=== PATIENT | female | born 1960 | race American Indian/Alaskan Native ===

== ENCOUNTER → 2018-12-06 16:14 | Outpatient (CLI) | payer OTHER, SELFPAY ==
--- NOTE | 2018-12-06 | DI.RAD.S_ITS ---
PROCEDURE: XR KNEE RT 3V INDICATIONS: GROWTH ON PRETIBIAL TUBEROCITY TECHNIQUE: 3 views of the knee were acquired. COMPARISON: None. FINDINGS: Bones: No fractures or dislocations. No suspicious bony lesions. Mild joint degeneration primarily involving the medial compartment. The tibial tuberosity appears within normal limits. Soft tissues: No joint effusion. No suspicious soft tissue calcifications. IMPRESSION: Mild right knee joint degeneration. No osseous lesion identified. If there is persistent clinical concern for mass, further evaluation of the soft tissues with cross-sectional imaging could be performed. Dictated by: Jovanny Choudhary M.D. on 12/06/2018 at 16:51 Approved by: Jovanny Choudhary M.D. on 12/06/2018 at 16:53
== END ==
PROVIDERS: Visit Provider Family Medicine
DX: M89.8X6 Other specified disorders of bone, lower leg (principal); M17.11 Unilateral primary osteoarthritis, right knee
CPT/HCPCS: 73562

== ENCOUNTER → 2023-06-14 13:13 | Outpatient (CLI) | payer OTHER, SELFPAY ==
[2023-06-14 15:11] LABS: Add Manual Diff / Slide Review NO; Basophils Absolute Auto 0 /uL (0-100); Basophils Percent Auto 0.5 % (0-2); Eosinophils Absolute Auto 300 /uL (0-450); Hematocrit 35.4 % (36-46); Hemoglobin 12.3 g/dL (12.0-16.0); Lymphocytes Absolute Auto 2400 /uL (1100-4500); Lymphocytes Percent Auto 31.4 % (25-40); Mean Corpuscular HGB Conc 34.7 % (30-36); Mean Corpuscular Hemoglobin 29.5 PG (26-34); Mean Corpuscular Volume 85.1 fL (80-100); Monocytes Absolute Auto 500 /uL (0-900); Monocytes Percent Auto 6.2 % (3-14); Neutrophils Absolute Auto 4400 /uL (1500-7000); Neutrophils Percent Auto 57.9 % (50-75); Platelet Count 264 X10^3/uL (150-400); Red Blood Cell Count 4.16 X10^6/uL (4.0-5.2); Red Cell Distribution Width 13.3 % (11.6-14.8); White Blood Cell Count 7.6 X10^3/uL (4.5-11.0)
[2023-06-14 16:08] LABS: Alanine Aminotransferase 36 IU/L (<35); Albumin 4.3 g/dL (3.5-5.0); Albumin Globulin Ratio 1.2 (1.0-2.8); Alkaline Phosphatase 170 U/L (38-126); Aspartate Aminotransferase 35 IU/L (14-36); BUN Creatinine Ratio 21.2 (6-22); Bilirubin Total 0.7 mg/dL (0.2-1.3); Blood Urea Nitrogen 28 mg/dL (7-17); Calcium 9.1 mg/dL (8.4-10.2); Carbon Dioxide 30 mmol/L (22-32); Chloride 92 mmol/L (98-107); Estimated Glomerular Filt Rate 46 mL/min (>60); Globulin 3.7 g/dL (1.7-4.1); HEMOLYSIS 23 (0-50); Lipase 696 U/L (23-300); Potassium 3.7 mmol/L (3.4-5.1); Sodium 132 mmol/L (137-145)
[2023-06-14 20:02] LABS: Glucose 495 mg/dL (80-110)
[2023-06-15 03:36] LABS: Labcorp Hemoglobin (Hb) A1c 12.5 % (4.8-5.6)
[2023-06-15 13:21] LABS: Interpretation Positive (Negative)
== END ==
PROVIDERS: PCP Family Medicine; Referring Provider Registered Nurse; Visit Provider Registered Nurse
DX: R10.13 Epigastric pain (principal); E11.9 Type 2 diabetes mellitus without complications
CPT/HCPCS: 36415; 80053; 83013; 83036; 83690; 85025

== ENCOUNTER 2023-06-14 20:36 | Emergency (ER) | payer OTHER, SELFPAY ==
[2023-06-14 20:43] VITALS: BP 124/71; PULSE 92; RESP 16; TEMP 36.6; O2SAT 98; BMI 19.9
[2023-06-14 21:23] LABS: Add Manual Diff / Slide Review NO; Basophils Absolute Auto 0 /uL (0-100); Basophils Percent Auto 0.3 % (0-2); Eosinophils Absolute Auto 300 /uL (0-450); Eosinophils Percent Auto 3.9 % (2-4); Hematocrit 35.4 % (36-46); Hemoglobin 12.1 g/dL (12.0-16.0); Lymphocytes Absolute Auto 2300 /uL (1100-4500); Lymphocytes Percent Auto 34.8 % (25-40); Mean Corpuscular HGB Conc 34.2 % (30-36); Mean Corpuscular Hemoglobin 29.5 PG (26-34); Mean Corpuscular Volume 86.4 fL (80-100); Monocytes Absolute Auto 500 /uL (0-900); Monocytes Percent Auto 7.3 % (3-14); Neutrophils Absolute Auto 3600 /uL (1500-7000); Neutrophils Percent Auto 53.7 % (50-75); Platelet Count 240 X10^3/uL (150-400); Red Blood Cell Count 4.09 X10^6/uL (4.0-5.2); Red Cell Distribution Width 12.9 % (11.6-14.8); White Blood Cell Count 6.7 X10^3/uL (4.5-11.0)
[2023-06-14 21:28] LABS: Alanine Aminotransferase 33 IU/L (<35); Albumin 3.9 g/dL (3.5-5.0); Albumin Globulin Ratio 1.1 (1.0-2.8); Alkaline Phosphatase 183 U/L (38-126); Aspartate Aminotransferase 31 IU/L (14-36); BUN Creatinine Ratio 21.9 (6-22); Bilirubin Total 0.6 mg/dL (0.2-1.3); Blood Urea Nitrogen 32 mg/dL (7-17); Calcium 8.6 mg/dL (8.4-10.2); Carbon Dioxide 26 mmol/L (22-32); Chloride 94 mmol/L (98-107); Estimated Glomerular Filt Rate 40 mL/min (>60); Globulin 3.6 g/dL (1.7-4.1); HEMOLYSIS 18 (0-50); Potassium 3.7 mmol/L (3.4-5.1); Sodium 130 mmol/L (137-145); Total Protein 7.5 g/dL (6.3-8.2)
[2023-06-14 21:31] LABS: Ketones (Beta-Hydroxybutyrate) 0.08 mmol/L (<0.27)
[2023-06-14 21:39] LABS: Glucose 610 mg/dL (80-110)
[2023-06-14] MEDS: SODIUM CHLORIDE 0.9% 1,000 ML 1000 ML IV (22:02)
[2023-06-14 22:14] LABS: Creatine Kinase 108 U/L (30-135); Lipase 692 U/L (23-300)
[2023-06-14 22:19] VITALS: BP 122/60; PULSE 86; O2SAT 98
[2023-06-14 22:27] LABS: Troponin I < 0.012 ng/mL (0.01-0.034)
[2023-06-14 22:30] VITALS: BP 112/55; PULSE 85; O2SAT 99
[2023-06-14 23:00] VITALS: BP 116/57; PULSE 83; O2SAT 98
[2023-06-14 23:30] VITALS: BP 109/58; PULSE 78; O2SAT 97
--- NOTE | 2023-06-14 23:54 | ED_ITS ---
HPI - General Adult General Chief complaint: Diabetic Problem Stated complaint: sent due to high glucose on labwork Time Seen by Provider: 06/14/23 21:10 Source: patient Mode of arrival: Ambulatory History of Present Illness HPI narrative: Patient is a 63-year-old history of type 2 diabetes presenting today with elevated blood sugar. She reports that she is been helping her dad who has been hospitalized a needing follow-up appointments it has been ongoing for number of weeks. She is been out of her metformin for 4-6 weeks. She was supposed to be off it for 1 week in transition to Ozempic however she was not able to do so. She did go to her doctor today and she did receive 1 dose of Ozempic. She was found to have elevated glucose in the 600s and sent to the ED. He reports some epigastric pain ongoing for the past couple months. No real nausea or vomiting no fever no chest pain or shortness of breath. She has an outpatient ultrasound scheduled for tomorrow. Related Data Home Medications Medication Instructions Recorded Confirmed hydrochlorothiazide 25 mg tablet 25 mg PO QDAY ##0 09/01/12 Allergies Allergy/AdvReac Type Severity Reaction Status Date / Time nitrofurantoin Allergy Mild RASH Unverified 12/07/18 09:46 [NITROFURANTOIN] Penicillins [PENICILLINS] Allergy Mild RASH Unverified 12/07/18 09:46 Sulfa (Sulfonamide Allergy Mild RASH Unverified 12/07/18 09:46 Antibiotics) [SULFA (SULFONAMIDE ANTIBIOTICS)] MDX Allergy Mild RASH Uncoded 12/07/18 09:46 Review of Systems Review of Systems ROS Unobtainable: All systems reviewed & are unremarkable except as noted in HPI and below Patient History Social History Smoking Status: Never smoker Smoking Status: Never smoker Substance Use Type: does not use Exam Initial Vital Signs Initial Vital Signs: Vital Signs Temperature 97.9 F 06/14/23 20:43 Pulse Rate 92 H 06/14/23 20:43 Respiratory Rate 16 06/14/23 20:43 Blood Pressure 124/71 06/14/23 20:43 Pulse Oximetry 98 06/14/23 20:43 Oxygen Delivery Method Room Air 06/14/23 20:43 GENERAL: Alert pleasant well-appearing 63-year-old female and in no acute d istress. HEENT: Head atraumatic,EOMI, pupils reactive, face symmetric, moist mucous membranes CARDIOVASCULAR: Regular rate and rhythm without murmurs, rubs or gallops. RESPIRATORY: Breath sounds equal bilaterally, no wheezes rales or rhonchi. ABDOMEN: Soft, mild epigastric pain no guarding no rebound no right upper quadrant pain EXTREMITIES: Normal range of motion, no clubbing or edema. Neurovascularly intact NEUROLOGICAL: Alert and oriented x4. SKIN: Warm, dry, no laceration, no petechiae, no rashes or lesions. Course Orders Ordered: ED Orders 06/14/23 21:54 EKG-12 Lead Stat Discontinued Medications Sodium Chloride (Normal Saline 0.9%) 1,000 mls @ 1,000 mls/hr IV BOLUS ONE Stop: 06/14/23 22:52 Last Infusion: 06/14/23 23:02 Dose: 0 mls/hr Documented By: Admin: 06/14/23 22:02 Dose: 1,000 mls/hr Documented By: GIORGIO Vital Signs Vital signs: Vital Signs - 8 hr 06/15/23 00:27 06/14/23 22:30 06/14/23 22:30 Temperature 97.7 F Pulse Rate 68 85 Respiratory Rate 16 Blood Pressure 105/70 112/55 L Pulse Oximetry 98 99 Oxygen Delivery Method Room Air 06/14/23 23:00 06/14/23 23:00 06/14/23 23:30 Temperature Pulse Rate 83 Respiratory Rate Blood Pressure 116/57 L 109/58 L Pulse Oximetry 98 Oxygen Delivery Method 06/14/23 23:30 Temperature Pulse Rate 78 Respiratory Rate Blood Pressure Pulse Oximetry 97 Oxygen Delivery Method Medical Decision Making Lab Data 06/14/23 21:00 06/14/23 21:00 Labs: Lab Results 06/14/23 06/14/23 06/14/23 Range/Units 21:00 21:00 21:00 WBC 6.7 (4.5-11.0) X10^3/uL RBC 4.09 (4.0-5.2) X10^6/uL Hgb 12.1 (12.0-16.0) g/dL Hct 35.4 L (36-46) % MCV 86.4 (80-100) fL MCH 29.5 (26-34) PG MCHC 34.2 (30-36) % RDW 12.9 (11.6-14.8) % Plt Count 240 (150-400) X10^3/uL Neut % (Auto) 53.7 (50-75) % Lymph % (Auto) 34.8 (25-40) % Archer % (Auto) 7.3 (3-14) % Eos % (Auto) 3.9 (2-4) % Baso % (Auto) 0.3 (0-2) % Neut # (Auto) 3600 (0864-7191) /uL Lymph # (Auto) 2300 (2291-1479) /uL Archer # (Auto) 500 (0-900) /uL Eos # (Auto) 300 (0-450) /uL Baso # (Auto) 0 (0-100) /uL VBG pH (7.33-7.43) VBG pCO2 (45-50) mmHg VBG pO2 (35-45) mmHg VBG HCO3 (24-28) mmol/L VBG Total CO2 (24-29) mmol/L VBG O2 Saturation (70-75) % VBG Base Excess (0-4) mmol/L FiO2 Sodium 130 L (137-145) mmol/L Potassium 3.7 (3.4-5.1) mmol/L Chloride 94 L (98-107) mmol/L Carbon Dioxide 26 (22-32) mmol/L BUN 32 H (7-17) mg/dL Creatinine 1.46 H (0.52-1.04) mg/dL Estimated GFR 40 L (>60) mL/min BUN/Creatinine Ratio 21.9 (6-22) Glucose 610 H* (80-110) mg/dL Calcium 8.6 (8.4-10.2) mg/dL Total Bilirubin 0.6 (0.2-1.3) mg/dL AST 31 (14-36) IU/L ALT 33 (<35) IU/L Alkaline Phosphatase 183 H (38-126) U/L Total Creatine Kinase 108 (30-135) U/L Troponin I < 0.012 (0.01-0.034) ng/mL Total Protein 7.5 (6.3-8.2) g/dL Albumin 3.9 (3.5-5.0) g/dL Globulin 3.6 (1.7-4.1) g/dL Albumin/Globulin Ratio 1.1 (1.0-2.8) Lipase 692 H (23-300) U/L Ketones 0.08 (<0.27) mmol/L /06/29 Range/Units 21:11 WBC (4.5-11.0) X10^3/uL RBC (4.0-5.2) X10^6/uL Hgb (12.0-16.0) g/dL Hct (36-46) % MCV (80-100) fL MCH (26-34) PG MCHC (30-36) % RDW (11.6-14.8) % Plt Count (150-400) X10^3/uL Neut % (Auto) (50-75) % Lymph % (Auto) (25-40) % Archer % (Auto) (3-14) % Eos % (Auto) (2-4) % Baso % (Auto) (0-2) % Neut # (Auto) (0837-2184) /uL Lymph # (Auto) (8590-5552) /uL Archer # (Auto) (0-900) /uL Eos # (Auto) (0-450) /uL Baso # (Auto) (0-100) /uL VBG pH 7.39 (7.33-7.43) VBG pCO2 43.1 L (45-50) mmHg VBG pO2 31 L (35-45) mmHg VBG HCO3 26 (24-28) mmol/L VBG Total CO2 27 (24-29) mmol/L VBG O2 Saturation 58 L (70-75) % VBG Base Excess 1.0 (0-4) mmol/L FiO2 21 Sodium (137-145) mmol/L Potassium (3.4-5.1) mmol/L Chloride (98-107) mmol/L Carbon Dioxide (22-32) mmol/L BUN (7-17) mg/dL Creatinine (0.52-1.04) mg/dL Estimated GFR (>60) mL/min BUN/Creatinine Ratio (6-22) Glucose (80-110) mg/dL Calcium (8.4-10.2) mg/dL Total Bilirubin (0.2-1.3) mg/dL AST (14-36) IU/L ALT (<35) IU/L Alkaline Phosphatase (38-126) U/L Total Creatine Kinase (30-135) U/L Troponin I (0.01-0.034) ng/mL Total Protein (6.3-8.2) g/dL Albumin (3.5-5.0) g/dL Globulin (1.7-4.1) g/dL Albumin/Globulin Ratio (1.0-2.8) Lipase (23-300) U/L Ketones (<0.27) mmol/L Point of Care Testing Glucose POC 470 Urine Dip Bedside Urine Glucose 1000 mg/dl Bedside Urine Bilirubin - Negative Bedside Urine Ketone - Negative Urine Specific [place] 1.005 Bedside Urine Occult Blood - Negative Bedside Urine pH 6 Bedside Urine Protein - Negative Bedside Urine Urobilinogen - Negative Bedside Urine Nitrite - Negative Bedside Urine Leukocytes - Negative Esterase Point of care testing: Point of Care Testing Glucose POC 470 Urine Dip Bedside Urine Glucose 1000 mg/dl Bedside Urine Bilirubin - Negative Bedside Urine Ketone - Negative Urine Specific [place] 1.005 Bedside Urine Occult Blood - Negative Bedside Urine pH 6 Bedside Urine Protein - Negative Bedside Urine Urobilinogen - Negative Bedside Urine Nitrite - Negative Bedside Urine Leukocytes - Negative Esterase ECG Data Interpretation: Normal sinus rhythm rate 83 TN interval 164 QRS [address] changes no T- wave inversions no priors to compare MDM Narrative Medical decision making narrative: 63-year-old female history of type 2 diabetes presenting today with hyperglycemia. No evidence of DKA she does not have an anion gap no nausea or vomiting. She is had some ongoing epigastric pain. Lipase is noted to be mildly elevated 690 no elevation of bilirubin or liver enzymes she is an outpatient ultrasound ordered for tomorrow which I think is reasonable. Ozempic can cause some pancreatitis discussed how she may need a different medication and to talk with her PCP about this. Glucose has improved with 1 L of IV fluids. She has a normal mentation pH is 7.38. This time I recommend outpatient follow-up Discharge Plan Departure Patient Disposition: Home Clinical Impression: Acute hyperglycemia, Elevated lipase Instructions: DI for Pancreatitis, DI for Diabetes Type 2 Activity Restrictions/Additional Instructions: *You have been diagnosed with hyperglycemia, elevated lipase *What to do: At this time please talk with your PCP in regards to Ozempic. Which can cause some pancreatitis he to have an elevated lipase. Please have your ultrasound as scheduled tomorrow *Continue to take medications as directed *Follow up with your primary care provider in 2-3 days or call [phone] *Return to ER if you should have increased abdominal pain nausea vomiting or any new, worsening or concerning symptoms Prescriptions: No Action hydrochlorothiazide 25 MG tablet 25 mg PO QDAY Qty: 0 Referrals: Aliza Adames MD [Primary Care Provider] - Stand Alone Forms: Patient Portal/API
[2023-06-15 00:27] VITALS: BP 105/70; PULSE 68; RESP 16; TEMP 36.5; O2SAT 98
[2023-06-15 00:47] LABS: HCO3 VBG 26 mmol/L (24-28); Oxygen Saturation VBG 58 % (70-75); PCO2 VBG 43.1 mmHg (45-50); PO2 VBG 31 mmHg (35-45); Total CO2 VBG 27 mmol/L (24-29); pH VBG 7.39 (7.33-7.43)
[2023-06-15 00:48] LABS: Fractionated Inspired Oxygen 21
== END 2023-06-15 00:28 | disposition home or self-care (01) ==
PROVIDERS: Emergency Provider Emergency Medicine; PCP Family Medicine
DX: E11.65 Type 2 diabetes mellitus with hyperglycemia (principal); R74.8 Abnormal levels of other serum enzymes; Z79.84 Long term (current) use of oral hypoglycemic drugs; R03.1 Nonspecific low blood-pressure reading; R10.13 Epigastric pain; E11.9 Type 2 diabetes mellitus without complications
CPT/HCPCS: 36415; 80053; 81003; 82009; 82550; 82805; 82962; 83013; 83036; 83690; 84484; 85025; 93005; 93010; 99284

== ENCOUNTER → 2023-06-15 09:49 | Outpatient (CLI) | payer OTHER, SELFPAY ==
--- NOTE | 2023-06-15 09:50 | DI.US.S_ITS ---
PROCEDURE: US ABDOMEN COMPLETE INDICATIONS: EPIGASTRIC PAIN TECHNIQUE: Real-time scanning was performed of the abdominal and retroperitoneal organs, with image documentation. Color and pulse Doppler interrogation was also performed of the hepatic and splenic vessels, or of the lesion of interest. COMPARISON: None. FINDINGS: Liver: Liver is normal in size and demonstrates heterogeneous echotexture. There is a small hypoechoic focus in the gallbladder fossa, compatible with fatty sparing. Portal vein is patent. Gallbladder: No gallstones. No gallbladder wall thickening, pericholecystic fluid or sonographic Walker's sign. Biliary ducts: No intrahepatic biliary ductal dilatation. Extrahepatic bile duct is 3 mm in caliber. Normal biliary caliber is 6-7 mm or less, or 10 mm or less post-cholecystectomy. Spleen: Spleen is normal in size and homogeneous in echotexture. Pancreas: Visualized portions of the pancreas appear normal. Kidneys: Both kidneys are normal in size and echotexture. Right kidney measures 9.2 cm long; left kidney measures 11.0 cm long. No hydronephrosis or nephrolithiasis. No solid renal masses. Aorta: Visualized abdominal aorta is normal in caliber at less than 3 cm. Iliacs: Proximal common iliac arteries are normal in caliber at less than 2.5 cm. IVC: Intrahepatic inferior vena cava is patent. Miscellaneous: No free abdominal fluid. IMPRESSION: 1. Diffusely increased hepatic echotexture. This finding is most likely secondary to hepatic fatty infiltration although other hepatocellular disease may have a similar appearance. Recommend clinical correlation. Dictated by: Lacie Richter M.D. on 06/15/2023 at 12:53 Approved by: Lacie Richter M.D. on 06/15/2023 at 12:56
== END ==
PROVIDERS: PCP Family Medicine; Referring Provider Registered Nurse; Visit Provider Registered Nurse
DX: R10.13 Epigastric pain (principal)
CPT/HCPCS: 76700

== ENCOUNTER → 2023-06-21 14:19 | Outpatient (CLI) | payer OTHER, SELFPAY ==
[2023-06-21 16:34] LABS: Cholesterol 123 mg/dL (140-199); HDL Cholesterol 37 mg/dL (40-60); LDL Cholesterol Calculated 36 mg/dL (<100); Triglycerides 249 mg/dL (35-150)
[2023-06-23 12:14] LABS: Alanine Aminotransferase 31 IU/L (<35); Albumin Globulin Ratio 1.2 (1.0-2.8); Alkaline Phosphatase 107 U/L (38-126); Aspartate Aminotransferase 36 IU/L (14-36); BUN Creatinine Ratio 17.2 (6-22); Bilirubin Total 0.5 mg/dL (0.2-1.3); Blood Urea Nitrogen 26 mg/dL (7-17); Calcium 8.8 mg/dL (8.4-10.2); Carbon Dioxide 20 mmol/L (22-32); Chloride 98 mmol/L (98-107); Estimated Glomerular Filt Rate 39 mL/min (>60); Globulin 3.3 g/dL (1.7-4.1); Glucose 349 mg/dL (80-110); HEMOLYSIS < 15 (0-50); Potassium 3.6 mmol/L (3.4-5.1); Sodium 132 mmol/L (137-145); Total Protein 7.3 g/dL (6.3-8.2)
== END ==
PROVIDERS: PCP Family Medicine; Referring Provider Registered Nurse; Visit Provider Registered Nurse
DX: R79.89 Other specified abnormal findings of blood chemistry (principal); A04.8 Other specified bacterial intestinal infections; E78.1 Pure hyperglyceridemia
CPT/HCPCS: 80053; 80061

== ENCOUNTER → 2023-06-24 13:57 | Outpatient (CLI) | payer OTHER, SELFPAY ==
[2023-06-24 15:21] LABS: BUN Creatinine Ratio 16.2 (6-22); Blood Urea Nitrogen 19 mg/dL (7-17); Calcium 8.7 mg/dL (8.4-10.2); Carbon Dioxide 22 mmol/L (22-32); Chloride 99 mmol/L (98-107); Estimated Glomerular Filt Rate 53 mL/min (>60); Glucose 317 mg/dL (80-110); HEMOLYSIS < 15 (0-50); Potassium 3.8 mmol/L (3.4-5.1); Sodium 132 mmol/L (137-145)
== END ==
PROVIDERS: PCP Family Medicine; Referring Provider Registered Nurse; Visit Provider Registered Nurse
DX: E78.1 Pure hyperglyceridemia (principal)
CPT/HCPCS: 36415; 80048

== ENCOUNTER → 2023-09-24 19:04 | Outpatient (CLI) | payer OTHER, SELFPAY ==
[2023-09-24 21:32] LABS: Influenza A - CEPHEID Flu A POSITIVE (NEGATIVE); Influenza B - CEPHEID Flu B NEGATIVE (NEGATIVE); Respiratory Syncytial Virus Negative (Negative)
[2023-09-24 21:37] LABS: COVID-19 CEPHEID 4-PLEX PCR Negative (Negative)
== END ==
PROVIDERS: PCP Family Medicine; Visit Provider Nurse Practitioner Family
DX: R05.1 Acute cough (principal)
CPT/HCPCS: 0241U

== ENCOUNTER → 2023-11-10 12:42 | Outpatient (CLI) | payer OTHER, SELFPAY ==
[2023-11-10 14:07] LABS: Lactate Dehydrogenase 209 U/L (120-246)
[2023-11-12 18:34] LABS: Free Kappa Lt Chains, Serum 58.8 mg/L (3.3-19.4); Free Lambda Lt Chains,Serum 25.3 mg/L (5.7-26.3)
[2023-11-15 13:10] LABS: Albumin 3.7 g/dL (2.9-4.4); Alpha-1-Globulin 0.2 g/dL (0.0-0.4); Alpha-2-Globulin 0.8 g/dL (0.4-1.0); Gamma Globulin 1.7 g/dL (0.4-1.8); Protein, Total 7.7 g/dL (6.0-8.5)
== END ==
LOC: LAB 12:43
PROVIDERS: PCP Family Medicine; Referring Provider Family Medicine; Visit Provider Family Medicine
DX: R77.9 Abnormality of plasma protein, unspecified (principal)
CPT/HCPCS: 36415; 82232; 82784; 83615; 83883; 84155; 84165